=== PATIENT | male | born 1980 | race Caucasian/White ===

== ENCOUNTER 2020-02-01 14:10 | Emergency (ER) | payer MEDICAID, OTHER ==
[~2020-02-01] VITALS: Ht 190.5 cm; Wt 112.0 kg
[2020-02-01 14:26] VITALS: BP 126/81
== END 2020-02-01 16:47 | disposition home or self-care (01) ==
LOC: ED 14:51
DX: S13.4XXA Sprain of ligaments of cervical spine, initial encounter (principal); S33.5XXA Sprain of ligaments of lumbar spine, initial encounter; V43.52XA Car driver injured in collision with other type car in traffic accident, initial encounter; Y93.89 Activity, other specified; Y92.410 Unspecified street and highway as the place of occurrence of the external cause; Y99.8 Other external cause status
CPT/HCPCS: 72050; 72110; 99284